=== PATIENT | female | born 1995 | race African-American/Black ===

== ENCOUNTER 2018-03-03 19:01 | Emergency (ER) | payer MEDICAID ==
[~2018-03-03] VITALS: Ht 162.6 cm; Wt 63.5 kg
[2018-03-03 19:51] LABS: Basophils # (auto) 0 uL; Basophils % (auto) 0.6 % (0.0-2.0); Eosinophils # (auto) 0.1 uL; Eosinophils % (auto) 1.5 % (0.0-7.0); Hematocrit 40.7 % (36.0-46.0); Hemoglobin 13.6 g/dL (12.2-16.2); Lymphocytes # (auto) 2.6 uL; Lymphocytes % (auto) 39.4 % (10.0-50.0); Mean Corpuscular Hemoglobin 27.2 pg (28.0-32.0); Mean Corpuscular Hgb Conc. 33.4 g/dL (32.0-36.0); Mean Corpuscular Volume 81.5 fL (80.0-100.0); Monocytes # (auto) 0.6 uL; Monocytes % (auto) 8.5 % (0.0-12.0); Neutrophils # (auto) 3.4 uL; Nucleated Red Blood Cells % 0.1 %; Platelet Count (auto) 257 10^3/uL (140-450); Red Cell Distribution Width 13.9 % (11.8-14.3); White Blood Cell 6.7 10^3/uL (4.4-10.8)
[2018-03-03 20:11] LABS: Urine Bacteria FEW /hpf (None Seen); Urine Blood Negative /uL (Negative); Urine Specific Gravity 1.019 (1.001-1.035); Urine WBC 35 /hpf (0 - 5)
[2018-03-03 20:14] LABS: Albumin 4.1 g/dL (3.4-5.0); BUN/Creatinine Ratio 11.4; Calcium 8.9 mg/dL (8.5-10.1); Potassium 3.9 mmol/L (3.5-5.1)
[2018-03-03 20:17] LABS: Bilirubin, Total 0.4 mg/dL (0.2-1.0); Total Protein 7.8 g/dL (6.4-8.2)
[2018-03-03 22:55] LABS: Alcohol, Urine < 3.0 mg/dL (0-5); Amphetamine Screen, Urine NEGATIVE (NEGATIVE); Barbiturate Scree,Urine NEGATIVE (NEGATIVE); Benzodiazephine Screen, Urine NEGATIVE (NEGATIVE); Cannabinoid Screen, Urine POSITIVE (NEGATIVE); Cocaine Screen, Urine NEGATIVE (NEGATIVE); Opiate Scree,Urine NEGATIVE (NEGATIVE); Phencyclidine Screen, Urine NEGATIVE (NEGATIVE)
[2018-03-03 23:00] VITALS: BP 133/76
== END 2018-03-04 00:39 | disposition left against medical advice (07) ==
LOC: ER 19:01
DX: O26.891 Other specified pregnancy related conditions, first trimester (principal); R10.2 Pelvic and perineal pain; Z3A.01 Less than 8 weeks gestation of pregnancy
CPT/HCPCS: 36415; 76801; 76817; 80053; 80307; 81001; 83690; 84702; 85025

== ENCOUNTER 2024-11-22 03:22 | Emergency (ER) | payer MEDICAID ==
[~2024-11-22] VITALS: Ht 160 cm; Wt 59.0 kg
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
--- NOTE | 2024-11-22 04:05 | DVH ---
CLINICAL INDICATION: LEFT FOOT INJURY TECHNIQUE: XY L FOOT 3 VIEW XRAY Comparison: None FINDINGS/IMPRESSION: : Small cortical irregularity along the medial margin of the 4th metatarsal head may represent a mildly displaced fracture. Soft tissues are unremarkable.
[2024-11-22 04:15] VITALS: BP 126/74; TEMP 98.3
[2024-11-22 04:20] VITALS: PULSE 85; RESP 18; O2SAT 98
[2024-11-22] MEDS: HYDROcodone-ACET 5/325MG TAB PO ONE (04:29)
[2024-11-22] MEDS: IBUPROFEN 600 MG TAB PO ONE (04:29)
[2024-11-22] MEDS ORDERED: IBUP-1456 PO (04:47)
== END 2024-11-22 05:09 | disposition home or self-care (01) ==
LOC: EDBD 03:22 → ER 03:22
DX: S92.345A Nondisplaced fracture of fourth metatarsal bone, left foot, initial encounter for closed fracture (principal); S90.819A Abrasion, unspecified foot, initial encounter; Y08.89XA Assault by other specified means, initial encounter; Y93.89 Activity, other specified; Y92.89 Other specified places as the place of occurrence of the external cause; Y99.8 Other external cause status
CPT/HCPCS: 29515; 73630